=== PATIENT | female | born 1965 | race Caucasian/White ===

== ENCOUNTER 2019-10-17 00:27 | Inpatient (IN) | payer MEDICAID ==
[~2019-10-17] VITALS: Ht 167.6 cm; Wt 53.2 kg
[~2019-10-17 00:27] MED LIST: POTA20TA19 PO
[2019-10-17] MEDS ORDERED: ibuprofen 200mg tablet PO ONE (00:40)
--- NOTE | 2019-10-17 00:44 | NUR ---
STU [phone] PERSON WHO BROUGHT THE PATIENT IN TO BE SEEN
[2019-10-17] MEDS ORDERED: vancomycin/NS 1 GM ADD-VANTAGE 250 ML IV ONE (01:35)
[2019-10-17] MEDS ORDERED: normal saline 1000ML IV soln IV ONE (01:35)
[2019-10-17] MEDS ORDERED: CefTRIAXone/D5W-Rocephin 1gm 50 ML IV ONE (01:35)
[2019-10-17] MEDS ORDERED: fentaNYL/PF 50MCG/1 ML 2ML syringe IV ONE (01:45)
[2019-10-17] MEDS ORDERED: ampicillin inj 2 GM in normal saline 100ml IV soln 100 ML IV SCH (02:00)
[2019-10-17 02:31] LABS: BASOPHILS % (AUTO) 0.2 % (0-1); EOSINOPHILS % (AUTO) 0.2 % (0-6); HEMATOCRIT 39.5 % (35.0-45.0); HEMOGLOBIN 13.1 g/dl (12.0-16.0); LYMPHOCYTES # (AUTO) 1.3 X10'3 (1.1-4.8); LYMPHOCYTES % (AUTO) 13.6 % (21-51); MEAN CORPUSCULAR HEMOGLOBIN 28.8 PG (27.0-31.0); MEAN CORPUSCULAR HGB CONC 33.2 g/dL (33.0-36.5); MEAN CORPUSCULAR VOLUME 86.7 FL (78-98); MEAN PLATELET VOLUME 8.6 FL (7.4-10.4); MONOCYTES # (AUTO) 0.9 X10'3 (0-0.9); MONOCYTES % (AUTO) 9.2 % (2-12); NEUTROPHILS # (AUTO) 7.5 X10'3 (1.8-7.7); NEUTROPHILS % (AUTO) 76.8 % (42-75); PLATELET COUNT 206 X10'3 (140-440); RED BLOOD COUNT 4.55 X10'6 (4.20-5.60); RED CELL DISTRIBUTION WIDTH 14.7 % (11.5-14.5); WHITE BLOOD COUNT 9.7 X10'3 (4.5-11.0)
[2019-10-17 02:45] LABS: ALANINE AMINOTRANSFERASE 46 U/L (12-78); ALBUMIN 2.4 G/DL (3.4-5.0); ALBUMIN/GLOBULIN RATIO 0.4 (1.1-1.5); ALKALINE PHOSPHATASE 92 IU/L (46-116); ANION GAP 5 (8-16); ASPARTATE AMINO TRANSFERASE 90 U/L (10-37); BILIRUBIN,TOTAL 0.8 MG/DL (0.1-1.0); BLOOD UREA NITROGEN 10 MG/DL (7-18); BUN/CREATININE RATIO 11.1 (6.6-38.0); CALCIUM 8.5 MG/DL (8.5-10.1); CHLORIDE 93 MMOL/L (99-107); GLUCOSE 116 MG/DL (70-104); POTASSIUM 3.7 MMOL/L (3.5-5.1); SODIUM 128 MMOL/L (135-145); TOTAL CARBON DIOXIDE 29.9 MMOL/L (24-32); eGFR 65 ML/MIN
[2019-10-17 03:13] LABS: GLUCOSE,CSF 55 MG/DL (40-75); TOTAL PROTEIN,CSF 48 MG/DL (15-45)
[2019-10-17 03:47] LABS: CLARITY,URINE SLIGHTLY CLOUDY (Clear); COLOR,URINE YELLOW (Yellow); GLUCOSE, URINE NEGATIVE (Neg); KETONES,URINE NEGATIVE (Neg); LEUKOCYTE ESTERASE ,URINE NEGATIVE (Neg); NITRITES, URINE NEGATIVE (Neg); OCCULT BLOOD,URINE TRACE-INTACT (Neg); PROTEIN,URINE TRACE mg/dl (Neg)
[2019-10-17 03:54] LABS: APPEARANCE,CSF CLEAR; CSF RBC 0 /CU MM (0); CSF SUPERNATANT COLOR COLORLESS; CSF VOLUME 9 ML; TUBE# COUNTED 4
[2019-10-17 03:57] LABS: CSF WBC CT 6 /CU MM (0-5); NEUTRO,CSF 10 % (0-6)
[2019-10-17 04:02] LABS: UA COLLECTION TYPE STRAIGHT CATH
[2019-10-17 04:03] LABS: BACTERIA,URINE FEW /HPF (Neg); RBC,URINE 0-2 /HPF (0-2); SQUAMOUS EPITHELIAL CELL,UR FEW /LPF (FEW)
[2019-10-17] MEDS ORDERED: DIAZ10TA PO (04:12)
[2019-10-17] MEDS: normal saline 1000ml 1,000 ML IV SCH ×2 (04:32→14:24)
[2019-10-17] MEDS ORDERED: magnesium 4gm in 100ml NS 100 ML IV PRN (04:35)
[2019-10-17] MEDS ORDERED: magnesium Cl slow-release 64mg tablet PO PRN (04:35)
[2019-10-17] MEDS ORDERED: ondansetron/PF 4mg/2ml inj IV PRN (04:35)
[2019-10-17] MEDS ORDERED: potassium Cl 20 mEq SR tablet PO PRN ×2 (04:35)
[2019-10-17] MEDS ORDERED: magnesium hydroxide 30ml (MOM) UD suspension PO PRN (04:35)
[2019-10-17] MEDS ORDERED: magnesium 2GM in 50ml NS 50 ML IV PRN (04:35)
[2019-10-17] MEDS ORDERED: potassium CL 10mEq/100ml bag 100 ML IV PRN ×2 (04:35)
[2019-10-17] MEDS ORDERED: mag hydrox/Alum hydrox/simeth 30ml oral suspension PO PRN (04:35)
[2019-10-17 04:36] LABS: URINE AMPHETAMINE SCREEN NEGATIVE (Neg); URINE BARBITUATE SCREEN NEGATIVE (Neg); URINE BENZODIAZEPINES SCREEN NEGATIVE (Neg); URINE CANNABINOID SCREEN NEGATIVE (Neg); URINE COCAINE SCREEN NEGATIVE (Neg); URINE METHADONE SCREEN NEGATIVE (Neg); URINE OPIATE SCREEN POSITIVE (Neg); URINE PHENCYCLIDINE SCREEN NEGATIVE (Neg)
[2019-10-17 05:30] VITALS: BP 98/64
--- NOTE | 2019-10-17 06:00 | NUR ---
Patient in room PCU 3008. I have received report from Urmila JOYA and had the opportunity to ask questions and assume patient care.
--- NOTE | 2019-10-17 06:11 | NUR ---
Problems reprioritized. Patient report given, questions answered & plan of care reviewed with Lynda JOYA.
[2019-10-17 07:00] VITALS: BP 88/55
[2019-10-17] MEDS: K and/or MAG REPLACEMENT MC SCH ×2 (08:00→19:30)
[2019-10-17 09:00] VITALS: BP 100/71
[2019-10-17] MEDS: ketorolac trometh. 30mg/ml inj. IM SCH ×3 (10:42→19:23)
[2019-10-17 11:00] VITALS: BP 113/80
[2019-10-17] MEDS ORDERED: ketorolac trometh. 30mg/ml inj. IM SCH (14:00)
[2019-10-17 15:00] VITALS: BP 148/93
[2019-10-17] MEDS: VANCOMYCIN 750MG IV in NS 250 ML IV SCH (15:00)
--- NOTE | 2019-10-17 16:15 | NUR ---
Patient BP 134/88. Patient complaining of 10/[address] Dugan approved administering of this administration at bedside since BP no longer low. I will continue to monitor closely.
[2019-10-17] MEDS: morphine 2 MG/ML inj. syringe IV PRN ×2 (16:29→21:42)
--- NOTE | 2019-10-17 17:29 | NUR ---
Page Sent promotional table spacer PAGER ID: [phone] MESSAGE: [phone] Peri. Critical lab. Positive blood cultures in aerobic bottle gram positive cocci and clusters
[2019-10-17 18:00] VITALS: BP 120/81
--- NOTE | 2019-10-17 18:35 | NUR ---
Patient in room PCU 3008. I have received report from Wilfredo, and had the opportunity to ask questions and assume patient care.
[2019-10-17] MEDS ORDERED: lactobacillus rhamnosus 10,000 MMU CELLS/CAPSULE PO SCH (20:00)
--- NOTE | 2019-10-17 20:27 | NUR ---
Called Dr. Giron regarding the patient's blood culture x2 being positive for gram positive cocci in cluster. He acknowledged it but no orders were give at this time.
[2019-10-18] MEDS ORDERED: CefTRIAXone/D5W-Rocephin 1gm 50 ML IV SCH (01:00)
[2019-10-18] MEDS: normal saline 1000ml 1,000 ML IV SCH (01:03)
[2019-10-18] MEDS: ketorolac trometh. 30mg/ml inj. IM SCH (01:04)
[2019-10-18 02:00] VITALS: BP 149/91
[2019-10-18] MEDS: morphine 2 MG/ML inj. syringe IV PRN (03:15)
[2019-10-18] MEDS: VANCOMYCIN 750MG IV in NS 250 ML IV SCH (03:15)
[2019-10-18 06:00] VITALS: BP 143/94
--- NOTE | 2019-10-18 06:21 | NUR ---
Problems reprioritized. Patient report given to Enrique, questions answered & plan of care reviewed with .
--- NOTE | 2019-10-18 06:32 | NUR ---
Patient in room PCU 3008. I have received report from MAHNAZ Wilkins and had the opportunity to ask questions and assume patient care.
--- NOTE | 2019-10-18 08:50 | NUR ---
Pt was not found in room by telecommunication equipment repairer. Pt left AMA. Tele monitor found in room. Pt found waiting [place] bus [place] dressed with belongings. Agitated and did not want to come back inside to get PIV removed because she was waiting for her aunt to pick her up. PIV was still intact with primary tubing that appears to be cut and blood backflow. Asked patient to come back upstairs to remove PIV and have pt sign AMA paperwork. PIV removed, cannula intact. Pt escorted back downstairs by aide and security. Notified Ritchie.
--- NOTE | 2019-10-18 09:33 | NUR ---
PAGER ID: [phone] MESSAGE: [phone]: Vivien MCCARTYI pt found to leave AMA, Found pt at [facility] [phone]
[2019-10-19] MEDS ORDERED: VANCOMYCIN LEVEL IV ONE (02:30)
== END 2019-10-18 09:08 | disposition left against medical advice (07) | DRG 51 ==
LOC: ER 00:28 → ED HOLD 04:32 → PCU 3S 05:31
PROVIDERS: ADMIT Family Medicine; ATTEND Internal Medicine
PROC: 009U3ZZ Drainage of Spinal Canal, Percutaneous Approach (ICD-10-PCS; principal; 2019-10-17)
DX: A87.8 Other viral meningitis (principal); E87.1 Hypo-osmolality and hyponatremia; F15.90 Other stimulant use, unspecified, uncomplicated; I95.89 Other hypotension; F17.210 Nicotine dependence, cigarettes, uncomplicated; G40.909 Epilepsy, unspecified, not intractable, without status epilepticus; Z86.61 Personal history of infections of the central nervous system; Z86.73 Personal history of transient ischemic attack (TIA), and cerebral infarction without residual deficits
CPT/HCPCS: 36415; 62270; 70450; 71045; 80053; 80305; 81001; 82945; 83605; 84145; 84157; 85025; 85610; 87015; 87040; 87070; 87077; 87081; 87088; 87186; 89051; 96365; 96368; 96375; 99291; G0378; J0290; J0696; J1885; J2270; J3010; J3370; J7030; J7050